=== PATIENT | male | born 1980 | race Two or more races ===

== ENCOUNTER 2020-11-14 15:06 | Emergency (ER) | payer OTHER ==
[~2020-11-14] VITALS: Ht 175.3 cm; Wt 90.7 kg
[~2020-11-14 15:06] MED LIST: AMOX-CLAV 875-1 EACH PO; KETO10TA2 PO
== END 2020-11-14 15:07 | disposition home or self-care (01) ==
LOC: ER 15:06
DX: S41.121A Laceration with foreign body of right upper arm, initial encounter (principal); W25.XXXA Contact with sharp glass, initial encounter; Y93.89 Activity, other specified; Y92.098 Other place in other non-institutional residence as the place of occurrence of the external cause; Y99.8 Other external cause status